=== PATIENT | female | born 1955 | race Caucasian/White ===

== ENCOUNTER → 2018-07-15 11:45 | Outpatient (CLI) | payer OTHER, SELFPAY ==
--- NOTE | 2018-07-15 11:47 | DI.RAD.S_ITS ---
PROCEDURE: XR SHOULDER RT MIN 2V INDICATIONS: Right shoulder pain post fal in May 2018l TECHNIQUE: 3 views of the shoulder were acquired. COMPARISON: None. FINDINGS: Bones: No fractures or dislocations. No suspicious bony lesions. There is mild to moderate degenerative joint disease involving the acromioclavicular an glenohumeral joint. Subchondral lucencies from her head are likely caused by subchondral cyst formation. Visualized ribs appear intact. Soft tissues: No suspicious soft tissue calcifications. IMPRESSION: Mild to moderate degenerative joint disease. Dictated by: Kaye Orlando M.D. on 07/15/2018 at 17:45 Approved by: Kaye Orlando M.D. on 07/15/2018 at 17:46
== END ==
PROVIDERS: PCP Registered Nurse; Visit Provider Registered Nurse
DX: M25.511 Pain in right shoulder (principal); M19.011 Primary osteoarthritis, right shoulder
CPT/HCPCS: 73030

== ENCOUNTER → 2018-07-19 09:08 | Outpatient (CLI) | payer OTHER, SELFPAY ==
--- NOTE | 2018-07-19 | DI.MG.S_ITS ---
BILATERAL DIGITAL SCREENING MAMMOGRAM 3D/2D WITH CAD: 07/19/2018 CLINICAL: Routine screening. Family history of breast cancer. Comparison is made to exams dated: 06/14/2017 mammogram, 04/25/2016 mammogram, and 12/14/2013 mammogram - [facility]. The tissue of both breasts is predominantly fatty. Current study was also evaluated with a Computer Aided Detection (CAD) system. No significant masses, calcifications, or other findings are seen in either breast. There has been no significant interval change. IMPRESSION: NEGATIVE There is no mammographic evidence of malignancy. A 1 year screening mammogram is recommended.(07/20/2019) This exam was interpreted at Station ID: [id number]. NOTE: For mammograms, a report in lay terms will be sent to the patient. Approximately 15% of breast malignancies will not be visualized mammographically. In the management of a palpable breast mass, a negative mammogram must not discourage biopsy of a clinically suspicious lesion. Electronically Signed By: Sandra hewitt/annelise:07/21/2018 11:18:36 letter sent: Normal Exam ACR BI-RADS Category 1: Negative 3341F
== END ==
PROVIDERS: Family Provider Physician Assistant; PCP Registered Nurse; Visit Provider Registered Nurse
DX: Z12.31 Encounter for screening mammogram for malignant neoplasm of breast (principal); Z80.3 Family history of malignant neoplasm of breast
CPT/HCPCS: 77063; 77067

== ENCOUNTER → 2018-07-25 07:31 | Outpatient (CLI) | payer OTHER, SELFPAY ==
[2018-07-25 08:10] LABS: Add Manual Diff / Slide Review NO; Basophils Percent Auto 0.4 % (0-2); Eosinophils Percent Auto 2.5 % (2-4); Hematocrit 41.8 % (36-46); Hemoglobin 13.9 g/dL (12.0-16.0); Lymphocytes Percent Auto 25.3 % (25-40); Mean Corpuscular HGB Conc 33.2 % (30-36); Mean Corpuscular Hemoglobin 29.7 PG (26-34); Mean Corpuscular Volume 89.5 fL (80-100); Monocytes Percent Auto 6.3 % (3-14); Neutrophils Absolute Auto 5600 /uL (3000-5900); Neutrophils Percent Auto 65.5 % (50-75); Platelet Count 273 X10^3/uL (150-400); Red Blood Cell Count 4.67 X10^6/uL (4.0-5.2); Red Cell Distribution Width 14.3 % (11.6-14.8); White Blood Cell Count 8.5 X10^3/uL (4.5-11.0)
[2018-07-25 08:18] LABS: Hemoglobin A1C% w Est Avg Glu 6.1 % (4.0-6.0)
[2018-07-25 08:34] LABS: Alanine Aminotransferase 26 IU/L (9-52); Albumin 4.1 g/dL (3.5-5.0); Albumin Globulin Ratio 1.4 (1.0-2.8); Alkaline Phosphatase 62 U/L (38-126); Aspartate Aminotransferase 18 IU/L (14-36); BUN Creatinine Ratio 23.8 (6-22); Bilirubin Total 0.5 mg/dL (0.2-1.3); Blood Urea Nitrogen 19 mg/dL (7-17); Calcium 9.4 mg/dL (8.4-10.2); Carbon Dioxide 29 mmol/L (22-32); Chloride 103 mmol/L (98-107); Cholesterol 210 mg/dL (140-199); Estimated Glomerular Filt Rate > 60.0 mL/min (>60); Glucose 133 mg/dL (80-110); HDL Cholesterol 45 mg/dL (40-60); HEMOLYSIS < 15 (0-50); LDL Cholesterol Calculated 129 mg/dL (<100); Potassium 4.5 mmol/L (3.4-5.1); Sodium 143 mmol/L (137-145); Total Protein 7.1 g/dL (6.3-8.2); Triglycerides 182 mg/dL (35-150)
[2018-07-25 08:45] LABS: Vitamin D 25 Hydroxy (D3) 36.2 ng/mL (30.0-100.0)
[2018-07-25 09:00] LABS: Thyroid Stimulating Hormone 2.11 uIU/mL (0.47-4.68)
== END ==
PROVIDERS: PCP Registered Nurse; Visit Provider Registered Nurse
DX: E66.01 Morbid (severe) obesity due to excess calories (principal); E10.9 Type 1 diabetes mellitus without complications; E78.5 Hyperlipidemia, unspecified; Z13.29 Encounter for screening for other suspected endocrine disorder
CPT/HCPCS: 36415; 80053; 80061; 82306; 83036; 84443; 85025

== ENCOUNTER → 2018-07-28 10:04 | Outpatient (CLI) | payer OTHER, SELFPAY ==
[2018-07-28 12:18] LABS: Creatinine Urine Random 52.8 mg/dL
[2018-07-28 12:21] LABS: Microalbumi Creatinin Ratio Ur 13.2 ug/mg CR (<30); Microalbumin Urine Random 0.7 mg/dL (0-1.6)
== END ==
PROVIDERS: PCP Registered Nurse; Visit Provider Registered Nurse
DX: E10.9 Type 1 diabetes mellitus without complications (principal); E78.5 Hyperlipidemia, unspecified; Z13.29 Encounter for screening for other suspected endocrine disorder
CPT/HCPCS: 82043; 82570

== ENCOUNTER → 2018-08-14 14:45 | Outpatient (CLI) | payer OTHER, SELFPAY ==
[2018-08-14 16:08] LABS: Blood Urea Nitrogen 16 mg/dL (7-17); Estimated Glomerular Filt Rate > 60.0 mL/min (>60)
== END ==
PROVIDERS: PCP Registered Nurse; Visit Provider Registered Nurse
DX: E11.9 Type 2 diabetes mellitus without complications (principal)
CPT/HCPCS: 36415; 82565; 84520

== ENCOUNTER → 2018-08-19 13:37 | Outpatient (CLI) | payer OTHER, SELFPAY ==
--- NOTE | 2018-08-19 13:39 | DI.RAD.S_ITS ---
PROCEDURE: FL SHOULDER INJECTION MR/CT RT INDICATIONS: Right shoulder pain TECHNIQUE: The indications, alternatives, benefits, risks, and complications of the procedure were explained to the patient. Written informed consent was obtained and placed in the chart. The shoulder was examined fluoroscopically and a site for needle placement chosen for entry into the glenohumeral joint from an anterior approach. The skin was prepped and draped in a sterile fashion, and 1% lidocaine infiltrated from skin down to joint capsule. A spinal needle was inserted into the glenohumeral joint, and a small amount of iodinated contrast media injected to confirm intra-articular placement of the needle tip. This was followed by approximately 12 mL dilute solution of a gadolinium containing MR contrast agent. The needle was removed and a dressing was applied. The patient was given postprocedural instructions and sent to the MR suite for MR imaging. FINDINGS: A single fluoroscopic spot image demonstrates intra-articular location of injected iodinated contrast. IMPRESSION: Successful fluoroscopically guided administration of dilute Gadolinium solution into the shoulder joint for MR arthrogram. Dictated by: Kaye Orlando M.D. on 08/19/2018 at 15:05 Approved by: Kaye Orlando M.D. on 08/19/2018 at 15:05
--- NOTE | 2018-08-19 13:39 | DI.MRI.S_ITS ---
PROCEDURE: MR SHOULDER RT W CON INDICATIONS: Right shoulder pain TECHNIQUE: After the administration of 12 mL of dilute intra-articular Gadolinium contrast, oblique coronal T1 and T2 spin echo with fat saturation, oblique sagittal T1 spin echo with and without fat saturation, oblique sagittal T2 fast spin echo with fat saturation, axial T1 spin echo with fat saturation through the shoulder. COMPARISON: None. FINDINGS: Image quality: Excellent. Rotator cuff: Massive full-thickness tear of the supraspinatus and infraspinatus tendons. There is also teres minor tendinopathy and partial thickness articular sided tear image 11 series 9. Subscapularis tendinopathy with full-thickness slitlike tear image 14 series 9. Severe atrophy of all of the rotator cuff muscles. Bones and bursae: No bone marrow contusions or fractures. Moderate acromioclavicular joint degeneration. The acromion demonstrates conventional anatomy, without an os acromiale. Capsule and soft tissues: The labrum is not well seen circumferentially suggestive of chronic ill-defined tear. Intra-articular segment of the long head biceps tendon not well seen suggestive of rupture. The rotator interval appears normal, without fibrosis. The coracohumeral ligament is not seen and likely torn. No definite intra-articular loose bodies. IMPRESSION: Massive full-thickness tear of the supraspinatus and infraspinatus tendons. Partial thickness articular sided tear of the teres minor. Full-thickness slitlike tear and interstitial tearing involving the subscapularis. Severe atrophy of all the rotator cuff muscles. Circumferential, ill-defined probably chronic labral tear. Long head biceps tendon not well seen and probably ruptured. Dictated by: Олег Zacarias M.D. on 08/19/2018 at 15:39 Approved by: Олег Zacarias M.D. on 08/19/2018 at 15:45
== END ==
PROVIDERS: PCP Registered Nurse; Visit Provider Registered Nurse
DX: M25.511 Pain in right shoulder (principal); M75.121 Complete rotator cuff tear or rupture of right shoulder, not specified as traumatic
CPT/HCPCS: 23350; 73222; 77002

== ENCOUNTER → 2018-10-08 11:30 | Outpatient (CLI) | payer OTHER, SELFPAY ==
[2018-10-08 12:25] LABS: Alanine Aminotransferase 24 IU/L (9-52); Aspartate Aminotransferase 40 IU/L (14-36)
== END ==
PROVIDERS: PCP Registered Nurse; Visit Provider Registered Nurse
DX: E78.2 Mixed hyperlipidemia (principal); Z79.899 Other long term (current) drug therapy
CPT/HCPCS: 36415; 84450; 84460

== ENCOUNTER → 2019-05-14 15:24 | Outpatient (CLI) | payer OTHER, SELFPAY ==
[2019-05-14 15:59] LABS: Hemoglobin A1C% w Est Avg Glu 6.3 % (4.0-6.0)
[2019-05-14 16:05] LABS: BUN Creatinine Ratio 31.4 (6-22); Blood Urea Nitrogen 22 mg/dL (7-17); Calcium 9.6 mg/dL (8.4-10.2); Carbon Dioxide 28 mmol/L (22-32); Chloride 102 mmol/L (98-107); Cholesterol 148 mg/dL (140-199); Estimated Glomerular Filt Rate > 60.0 mL/min (>60); Glucose 104 mg/dL (80-110); HDL Cholesterol 61 mg/dL (40-60); HEMOLYSIS 29 (0-50); LDL Cholesterol Calculated 56 mg/dL (<100); Potassium 4.7 mmol/L (3.4-5.1); Sodium 139 mmol/L (137-145); Triglycerides 154 mg/dL (35-150)
== END ==
PROVIDERS: PCP Registered Nurse; Visit Provider Registered Nurse
DX: E11.9 Type 2 diabetes mellitus without complications (principal)
CPT/HCPCS: 36415; 80048; 80061; 83036

== ENCOUNTER → 2019-09-11 13:58 | Outpatient (CLI) | payer OTHER, SELFPAY ==
--- NOTE | 2019-09-11 | DI.MG.S_ITS ---
BILATERAL DIGITAL SCREENING MAMMOGRAM 3D/2D WITH CAD: 09/11/2019 CLINICAL: Routine screening. Family history of breast cancer. Comparison is made to exams dated: 07/19/2018 mammogram, 06/14/2017 mammogram, and 04/25/2016 mammogram - [facility]. The tissue of both breasts is predominantly fatty. Current study was also evaluated with a Computer Aided Detection (CAD) system. There is a mole marker on the left breast. No significant masses, calcifications, or other findings are seen in either breast. There has been no significant interval change. IMPRESSION: NEGATIVE There is no mammographic evidence of malignancy. A 1 year screening mammogram is recommended. This exam was interpreted at Station ID: [id number]. NOTE: For mammograms, a report in lay terms will be sent to the patient. Approximately 15% of breast malignancies will not be visualized mammographically. In the management of a palpable breast mass, a negative mammogram must not discourage biopsy of a clinically suspicious lesion. Electronically Signed By: Wai begum/annelise:09/11/2019 16:09:28 letter sent: Normal Exam ACR BI-RADS Category 1: Negative 3341F
== END ==
PROVIDERS: PCP Registered Nurse; Visit Provider Registered Nurse
DX: Z12.31 Encounter for screening mammogram for malignant neoplasm of breast (principal); Z80.3 Family history of malignant neoplasm of breast
CPT/HCPCS: 77063; 77067

== ENCOUNTER → 2019-11-02 12:41 | Outpatient (CLI) | payer OTHER, SELFPAY ==
[2019-11-02 15:14] LABS: Hemoglobin A1C% w Est Avg Glu 6.6 % (4.0-6.0)
== END ==
PROVIDERS: PCP Registered Nurse; Visit Provider Registered Nurse
DX: E11.9 Type 2 diabetes mellitus without complications (principal)
CPT/HCPCS: 36415; 83036

== ENCOUNTER → 2020-01-05 09:05 | Outpatient (CLI) | payer OTHER, SELFPAY ==
--- NOTE | 2020-01-05 09:06 | DI.MRI.S_ITS ---
PROCEDURE: MR FEMUR RT WO/W CON INDICATIONS: Large soft tissue thigh mass 14 x 8 cm lateral aspect TECHNIQUE: Noncontrast coronal T1 spin echo and STIR, sagittal T1 spin echo with fat saturation and STIR, axial T1 spin echo and T2 fast spin echo with fat saturation. After the administration of contrast, axial/sagittal/coronal T1 spin echo with fat saturation through the right thigh. COMPARISON: None. FINDINGS: Image quality: Excellent. Bones: Subtle skin marker is placed over lateral aspect of mid right thigh. There is no marrow edema. No area of abnormal intraosseous enhancement. No cortical erosion or destruction. No periosteal reaction. Right hip joint osteoarthritic changes are seen. No evidence of avascular necrosis of femoral head. Soft tissues: No discrete soft tissue masses are visualized. Asymmetric prominence of right lateral thigh subcutaneous fat is seen, an encapsulated lipoma cannot be excluded. The scanned muscles demonstrate normal overall bulk and internal signal. Subcutaneous tissues appear normal as well. No abnormal soft tissue enhancement. IMPRESSION: 1. No discrete enhancing soft tissue mass is seen. Asymmetrically prominent right lateral mid thigh subcutaneous fat which may represent an encapsulated lipoma in this area. 2. No underlying muscle involvement. No intramuscular mass or fluid collection. No abnormal intramuscular enhancement. 3. No abnormal intraosseous enhancement is suspicious intraosseous lesion. No fracture or dislocation. Bony cortex is intact. Dictated by: Salvatore Madrid M.D. on 01/05/2020 at 12:28 Approved by: Salvatore Madrid M.D. on 01/05/2020 at 12:33
== END ==
PROVIDERS: PCP Registered Nurse; Referring Provider Registered Nurse; Visit Provider Specialist
DX: R22.41 Localized swelling, mass and lump, right lower limb (principal)
CPT/HCPCS: 73720

== ENCOUNTER → 2020-06-13 08:06 | Outpatient (CLI) | payer MEDICARE, BC, SELFPAY ==
[2020-06-13 08:46] LABS: Hemoglobin A1C% w Est Avg Glu 6.8 % (4.0-6.0)
[2020-06-13 08:57] LABS: BUN Creatinine Ratio 32.3 (6-22); Blood Urea Nitrogen 21 mg/dL (7-17); Carbon Dioxide 30 mmol/L (22-32); Chloride 102 mmol/L (98-107); Cholesterol 153 mg/dL (140-199); Estimated Glomerular Filt Rate > 60.0 mL/min (>60); Glucose 145 mg/dL (80-110); HDL Cholesterol 63 mg/dL (40-60); HEMOLYSIS < 15 (0-50); LDL Cholesterol Calculated 56 mg/dL (<100); Potassium 4.5 mmol/L (3.4-5.1); Sodium 138 mmol/L (137-145); Triglycerides 172 mg/dL (35-150)
== END ==
PROVIDERS: PCP Nurse Practitioner Family; Referring Provider Nurse Practitioner Family; Visit Provider Registered Nurse
DX: E11.9 Type 2 diabetes mellitus without complications (principal); E66.9 Obesity, unspecified; E78.5 Hyperlipidemia, unspecified
CPT/HCPCS: 36415; 80048; 80061; 83036

== ENCOUNTER → 2020-09-17 11:09 | Outpatient (CLI) | payer MEDICARE, OTHER, SELFPAY ==
--- NOTE | 2020-09-17 | DI.MG.S_ITS ---
BILATERAL DIGITAL SCREENING MAMMOGRAM 3D/2D WITH CAD: 09/17/2020 CLINICAL: Routine screening. Family history of breast cancer. Comparison is made to exams dated: 09/11/2019 mammogram, 07/19/2018 mammogram, and 06/14/2017 mammogram - [facility]. The tissue of both breasts is predominantly fatty. Current study was also evaluated with a Computer Aided Detection (CAD) system. There is a mole marker on the left breast. No significant masses, calcifications, or other findings are seen in either breast. There has been no significant interval change. IMPRESSION: NEGATIVE There is no mammographic evidence of malignancy. A 1 year screening mammogram is recommended. This exam was interpreted at Station ID: [id number]. NOTE: For mammograms, a report in lay terms will be sent to the patient. Approximately 15% of breast malignancies will not be visualized mammographically. In the management of a palpable breast mass, a negative mammogram must not discourage biopsy of a clinically suspicious lesion. Electronically Signed By: Sandra hewitt/annelise:09/20/2020 16:32:07 letter sent: Normal Exam ACR BI-RADS Category 1: Negative 3341F
== END ==
PROVIDERS: PCP Nurse Practitioner Family; Referring Provider Nurse Practitioner Family; Visit Provider Nurse Practitioner Family
DX: Z12.31 Encounter for screening mammogram for malignant neoplasm of breast (principal); Z80.3 Family history of malignant neoplasm of breast
CPT/HCPCS: 77063; 77067

== ENCOUNTER → 2020-11-04 06:50 | Outpatient (CLI) | payer MEDICARE, OTHER, SELFPAY ==
[2020-11-04 08:26] LABS: Hematocrit 39.9 % (36-46); Mean Corpuscular HGB Conc 32.6 % (30-36); Mean Corpuscular Hemoglobin 28.3 PG (26-34); Mean Corpuscular Volume 86.9 fL (80-100); Platelet Count 247 X10^3/uL (150-400); Red Cell Distribution Width 14.9 % (11.6-14.8); White Blood Cell Count 7.1 X10^3/uL (4.5-11.0)
[2020-11-04 09:02] LABS: Creatinine Urine Random 262.6 mg/dL
[2020-11-04 09:04] LABS: Microalbumi Creatinin Ratio Ur 26.6 ug/mg CR (<30)
[2020-11-04 09:28] LABS: Alanine Aminotransferase 18 IU/L (<35); Albumin Globulin Ratio 1.3 (1.0-2.8); Alkaline Phosphatase 89 U/L (38-126); Aspartate Aminotransferase 20 IU/L (14-36); BUN Creatinine Ratio 28.1 (6-22); Bilirubin Total 0.7 mg/dL (0.2-1.3); Blood Urea Nitrogen 16 mg/dL (7-17); Carbon Dioxide 29 mmol/L (22-32); Chloride 103 mmol/L (98-107); Cholesterol 145 mg/dL (140-199); Estimated Glomerular Filt Rate > 60.0 mL/min (>60); Glucose 169 mg/dL (80-110); HDL Cholesterol 54 mg/dL (40-60); HEMOLYSIS < 15 (0-50); LDL Cholesterol Calculated 62 mg/dL (<100); Potassium 4.1 mmol/L (3.4-5.1); Sodium 137 mmol/L (137-145); TSH w/ Reflex to FT4 1.24 uIU/mL (0.47-4.68); Triglycerides 145 mg/dL (35-150)
[2020-11-04 14:30] LABS: Hemoglobin A1C% w Est Avg Glu 7.7 % (4.0-6.0)
== END ==
PROVIDERS: PCP Nurse Practitioner Family; Referring Provider Nurse Practitioner Family; Visit Provider Nurse Practitioner Family
DX: Z00.00 Encounter for general adult medical examination without abnormal findings (principal); E11.9 Type 2 diabetes mellitus without complications; E78.2 Mixed hyperlipidemia; F41.9 Anxiety disorder, unspecified
CPT/HCPCS: 36415; 80053; 80061; 82043; 82570; 83036; 84443; 85027

== ENCOUNTER → 2021-02-02 07:28 | Outpatient (CLI) | payer MEDICARE, OTHER, SELFPAY ==
[2021-02-02 08:33] LABS: Hemoglobin A1C% w Est Avg Glu 6.9 % (4.0-6.0)
[2021-02-02 08:48] LABS: Alanine Aminotransferase 19 IU/L (<35); Albumin Globulin Ratio 1.3 (1.0-2.8); Alkaline Phosphatase 83 U/L (38-126); Aspartate Aminotransferase 24 IU/L (14-36); BUN Creatinine Ratio 32.8 (6-22); Bilirubin Total 0.3 mg/dL (0.2-1.3); Blood Urea Nitrogen 19 mg/dL (7-17); Calcium 9.3 mg/dL (8.4-10.2); Carbon Dioxide 29 mmol/L (22-32); Chloride 104 mmol/L (98-107); Cholesterol 137 mg/dL (140-199); Estimated Glomerular Filt Rate > 60.0 mL/min (>60); Globulin 3.1 g/dL (1.7-4.1); Glucose 123 mg/dL (80-110); HDL Cholesterol 59 mg/dL (40-60); HEMOLYSIS < 15 (0-50); LDL Cholesterol Calculated 57 mg/dL (<100); Sodium 139 mmol/L (137-145); Total Protein 7.1 g/dL (6.3-8.2); Triglycerides 105 mg/dL (35-150)
[2021-02-02 13:27] LABS: Potassium 4.5 mmol/L (3.4-5.1)
== END ==
PROVIDERS: PCP Nurse Practitioner; Referring Provider Nurse Practitioner; Visit Provider Nurse Practitioner
DX: E11.9 Type 2 diabetes mellitus without complications (principal); E78.2 Mixed hyperlipidemia; Z79.899 Other long term (current) drug therapy
CPT/HCPCS: 36415; 80053; 80061; 83036

== ENCOUNTER → 2021-07-20 08:04 | Outpatient (CLI) | payer MEDICARE, OTHER, SELFPAY ==
[2021-07-20 09:50] LABS: Hemoglobin A1C% w Est Avg Glu 7.3 % (4.0-6.0)
[2021-07-20 10:32] LABS: Alanine Aminotransferase 15 IU/L (<35); Albumin Globulin Ratio 1.4 (1.0-2.8); Alkaline Phosphatase 88 U/L (38-126); Aspartate Aminotransferase 18 IU/L (14-36); BUN Creatinine Ratio 32.1 (6-22); Bilirubin Total 0.5 mg/dL (0.2-1.3); Blood Urea Nitrogen 18 mg/dL (7-17); Calcium 9.3 mg/dL (8.4-10.2); Carbon Dioxide 31 mmol/L (22-32); Chloride 102 mmol/L (98-107); Cholesterol 144 mg/dL (140-199); Estimated Glomerular Filt Rate > 60.0 mL/min (>60); Globulin 2.8 g/dL (1.7-4.1); Glucose 157 mg/dL (80-110); HDL Cholesterol 64 mg/dL (40-60); HEMOLYSIS < 15 (0-50); LDL Cholesterol Calculated 53 mg/dL (<100); Potassium 4.4 mmol/L (3.4-5.1); Sodium 139 mmol/L (137-145); Total Protein 6.8 g/dL (6.3-8.2); Triglycerides 137 mg/dL (35-150)
[2021-07-20 10:58] LABS: Thyroid Stimulating Hormone 1.47 uIU/mL (0.47-4.68)
[2021-07-20 11:40] LABS: Creatinine Urine Random 103.8 mg/dL
[2021-07-20 11:51] LABS: Microalbumi Creatinin Ratio Ur 8.6 ug/mg CR (<30); Microalbumin Urine Random 0.9 mg/dL (0-1.6)
== END ==
PROVIDERS: PCP Nurse Practitioner; Referring Provider Nurse Practitioner; Visit Provider Nurse Practitioner
DX: E11.9 Type 2 diabetes mellitus without complications (principal); E78.2 Mixed hyperlipidemia; F41.9 Anxiety disorder, unspecified; G47.00 Insomnia, unspecified; Z79.899 Other long term (current) drug therapy
CPT/HCPCS: 36415; 80053; 80061; 82043; 82570; 83036; 84439; 84443; 84481

== ENCOUNTER → 2021-09-30 10:18 | Outpatient (CLI) | payer MEDICARE, OTHER, SELFPAY ==
--- NOTE | 2021-09-30 10:19 | DI.MG.S_ITS ---
BILATERAL DIGITAL SCREENING MAMMOGRAM 3D/2D WITH CAD: 09/30/2021 CLINICAL: Routine screening. Family history of breast cancer. Comparison is made to exams dated: 09/17/2020 mammogram, 09/11/2019 mammogram, 07/19/2018 mammogram, and 06/14/2017 mammogram - [facility]. The tissue of both breasts is predominantly fatty. Current study was also evaluated with a Computer Aided Detection (CAD) system. There is a mole marker on the left breast. No significant masses, calcifications, or other findings are seen in either breast. There has been no significant interval change. IMPRESSION: NEGATIVE There is no mammographic evidence of malignancy. A 1 year screening mammogram is recommended. This exam was interpreted at Station ID: [id number]. NOTE: For mammograms, a report in lay terms will be sent to the patient. Approximately 15% of breast malignancies will not be visualized mammographically. In the management of a palpable breast mass, a negative mammogram must not discourage biopsy of a clinically suspicious lesion. Electronically Signed By: Lance lawler/annelise:10/02/2021 07:40:18 letter sent: Normal Exam ACR BI-RADS Category 1: Negative 3341F
== END ==
PROVIDERS: PCP Nurse Practitioner; Referring Provider Nurse Practitioner; Visit Provider Nurse Practitioner
DX: Z12.31 Encounter for screening mammogram for malignant neoplasm of breast (principal); Z80.3 Family history of malignant neoplasm of breast
CPT/HCPCS: 77063; 77067

== ENCOUNTER → 2021-11-10 07:36 | Outpatient (CLI) | payer MEDICARE, OTHER, SELFPAY ==
[2021-11-10 08:38] LABS: Hemoglobin A1C% w Est Avg Glu 7.7 % (4.0-6.0)
[2021-11-10 08:48] LABS: Alanine Aminotransferase 17 IU/L (<35); Albumin 3.9 g/dL (3.5-5.0); Albumin Globulin Ratio 1.4 (1.0-2.8); Alkaline Phosphatase 89 U/L (38-126); Aspartate Aminotransferase 22 IU/L (14-36); BUN Creatinine Ratio 19.4 (6-22); Bilirubin Total 0.5 mg/dL (0.2-1.3); Blood Urea Nitrogen 12 mg/dL (7-17); Calcium 9.3 mg/dL (8.4-10.2); Carbon Dioxide 28 mmol/L (22-32); Chloride 106 mmol/L (98-107); Cholesterol 137 mg/dL (140-199); Estimated Glomerular Filt Rate > 60.0 mL/min (>60); Globulin 2.8 g/dL (1.7-4.1); Glucose 149 mg/dL (80-110); HDL Cholesterol 62 mg/dL (40-60); HEMOLYSIS < 15 (0-50); LDL Cholesterol Calculated 50 mg/dL (<100); Potassium 4.6 mmol/L (3.4-5.1); Sodium 141 mmol/L (137-145); Total Protein 6.7 g/dL (6.3-8.2); Triglycerides 126 mg/dL (35-150)
[2021-11-10 09:01] LABS: Free T3, Triiodothyronine Free 3.04 pg/mL (2.77-5.27); Free T4, Direct Thyroxine 0.95 ng/dL (0.78-2.19)
[2021-11-10 09:14] LABS: Thyroid Stimulating Hormone 1.82 uIU/mL (0.47-4.68)
== END ==
PROVIDERS: PCP Nurse Practitioner; Referring Provider Nurse Practitioner; Visit Provider Nurse Practitioner
DX: E11.9 Type 2 diabetes mellitus without complications (principal); E78.2 Mixed hyperlipidemia; F41.9 Anxiety disorder, unspecified; G47.00 Insomnia, unspecified; R80.9 Proteinuria, unspecified; Z79.899 Other long term (current) drug therapy
CPT/HCPCS: 36415; 80053; 80061; 83036; 84439; 84443; 84481

== ENCOUNTER → 2022-03-27 07:51 | Outpatient (CLI) | payer MEDICARE, OTHER, SELFPAY ==
[2022-03-27 09:32] LABS: Hemoglobin A1C% w Est Avg Glu 7.7 % (4.0-6.0)
[2022-03-27 09:41] LABS: Alanine Aminotransferase 13 IU/L (<35); Albumin 3.7 g/dL (3.5-5.0); Albumin Globulin Ratio 1.3 (1.0-2.8); Alkaline Phosphatase 87 U/L (38-126); Aspartate Aminotransferase 19 IU/L (14-36); BUN Creatinine Ratio 23.5 (6-22); Bilirubin Total 0.6 mg/dL (0.2-1.3); Blood Urea Nitrogen 16 mg/dL (7-17); Calcium 8.8 mg/dL (8.4-10.2); Carbon Dioxide 29 mmol/L (22-32); Chloride 105 mmol/L (98-107); Estimated Glomerular Filt Rate > 60 mL/min (>60); Globulin 2.8 g/dL (1.7-4.1); Glucose 126 mg/dL (80-110); HEMOLYSIS < 15 (0-50); Potassium 4.4 mmol/L (3.4-5.1); Sodium 140 mmol/L (137-145); Total Protein 6.5 g/dL (6.3-8.2)
== END ==
PROVIDERS: PCP Nurse Practitioner; Referring Provider Nurse Practitioner; Visit Provider Nurse Practitioner
DX: E11.9 Type 2 diabetes mellitus without complications (principal)
CPT/HCPCS: 36415; 80053; 83036

== ENCOUNTER → 2022-04-25 12:22 | Outpatient (CLI) | payer MEDICARE, OTHER, SELFPAY | PROVIDERS: PCP Nurse Practitioner; Referring Provider Nurse Practitioner; Visit Provider Nurse Practitioner | DX: Z13.820 Encounter for screening for osteoporosis; Z78.0 Asymptomatic menopausal state; M85.852 Other specified disorders of bone density and structure, left thigh | CPT/HCPCS: 77080 ==

== ENCOUNTER → 2022-06-06 10:49 | Outpatient (CLI) | payer MEDICARE, OTHER, SELFPAY ==
--- NOTE | 2022-06-19 16:04 | DIAB.MNT ---
Initial Diabetes Medical Nutrition Therapy Assessment Name: Alexandra Burrell Date: 06/06/22 Time: [id number] Dx: Type II Diabetes Provider: Sharon Meléndez Alexandra presents for initial visit regarding T2DM. States she was doing relatively well with DM and weight pre-pandemic (lost 70#). At that time she was taking phentermine for wt loss and eating only when hungry. Since that time she has gained. Endorses at least 40# over 3 years. Reports lactose intolerance and does not eat fish or turkey (vomiting and diarrhea). No shellfish, though she is unsure why this is. Difficulty finding protein options. Originally though Metformin was causing the diarrhea, but turns out not to be the case. Dairy was the culprit. May benefit from Metformin trial again if provider agrees. This may reduce glargine needs. States she would like to know how much pro and carbs to eat. has h/o tracking food intake on delfin. May try goat cheese. Diet Recall: 11a: eggs and PB toast x 2 2-3p: 3-4oz chicken salad +/- 1.5c brown or wild rice 5-8p: 1.5c rice with chicken or burger and veggies sn: nothing or small apple Anthropometrics: Ht: 56 Wt: 325# reported Physical Activity: water aerobics 3x per week before, none now. Joined a gym but has not been back. Currently gardens and does PT weekly + home PT exercises daily. Self-Monitoring Blood Glucose: uses freestyle ebony. Time in range for 7 days 70-180 92% with 8% above target 181-240 mg/dL. In review of CGM, some elevated FBG and post meal readings. Reports 2 recent lows in the evening that were not symptomatic. May be a false low. Date Pre Post Pre Post Pre Post HS 05/31 122 812 189 8/13 14 15 139 190 16 135 210 06/06 122 Diabetes Medications: 17u glargine hs Pertinent Labs: hgA1c 7.7% Past Medical History: (Last Updated 05/15/22 @ 06:05 by GAGE Ochoa) Anxiety Asthma 20's Class 3 severe obesity due to excess calories in adult Depression (~1989) Diabetes Environmental allergies Hyperlipidemia associated with type 2 diabetes mellitus Obesity Osteopenia after menopause Right shoulder injury Multiple injuries leading to severe right shoulder pain in 06/07. Initially treated with PT and NSAIDs with no improvement in symptoms. MRI performed on 08/19/18 and showed multiple full thickness and partial thickness tears of her rotator cuff and a chronic tear of her labrum and probable rupture of the proximal biceps tendon. Patient saw ortho but was eventually discharged given lack of dysfunction. Seasonal allergies Childhood Sleep apnea (~2007) Type 2 diabetes mellitus with insulin therapy Nutrition Rx: 1500-1700kcals Carbohydrates: Daily:150g Meal:30 Snack:15-30g Protein 95-130g Nutrition Diagnosis: - Nutrition knowledge deficit r/t needing more pro ideas and unsure of macro recs aeb pt report - Excessive CHO intake r/t nutrition knowledge deficit aeb >1c rice at meals and elevated pc bg - Physical inactivity r/t pandemic impacting changes to her gym schedule aeb pt report Intervention: This participant was very receptive. Provided appropriate educational handouts. Discussed the following topics: Completed intake assessment. Discussed barriers to care. Protein ideas and recipes Nutrition rx and percentages for macros in delfin Tracking food intake benefits Plate Method, impact of macronutrients on blood sugar, meal timing, carbohydrate counting, pairing macronutrients and spreading out carbohydrates for better blood glucose management Recommended servings for carbohydrates at meals and snacks BG goals FBG 80-130 and 1-2hr pc <180 mg/dL Potential benefit to trying Metformin again Role of physical activity and following provider guidelines for safety Created SMART goals for patient self-care and success. Goals: Track food intake Try new protein idea Check FBg and/or 1-2 hr pc Follow-up: ROSALIE YIP follow-up in 3-4 weeks Catherine Quinn RDN, [place] Certified Diabetes Care and Braille Proofreader P: [phone] Thank you for this referral
== END ==
PROVIDERS: PCP Nurse Practitioner; Referring Provider Nurse Practitioner; Visit Provider Nurse Practitioner
DX: E11.9 Type 2 diabetes mellitus without complications (principal); Z71.3 Dietary counseling and surveillance
CPT/HCPCS: 97802

== ENCOUNTER → 2022-06-28 10:37 | Outpatient (CLI) | payer MEDICARE, OTHER, SELFPAY ==
[2022-06-28 13:04] LABS: Alanine Aminotransferase 13 IU/L (<35); Albumin 4.1 g/dL (3.5-5.0); Albumin Globulin Ratio 1.3 (1.0-2.8); Alkaline Phosphatase 85 U/L (38-126); Aspartate Aminotransferase 19 IU/L (14-36); BUN Creatinine Ratio 21.6 (6-22); Bilirubin Total 0.6 mg/dL (0.2-1.3); Blood Urea Nitrogen 16 mg/dL (7-17); Calcium 9.1 mg/dL (8.4-10.2); Carbon Dioxide 27 mmol/L (22-32); Chloride 102 mmol/L (98-107); Cholesterol 140 mg/dL (140-199); Estimated Glomerular Filt Rate > 60 mL/min (>60); Globulin 3.2 g/dL (1.7-4.1); Glucose 120 mg/dL (80-110); HDL Cholesterol 59 mg/dL (40-60); HEMOLYSIS < 15 (0-50); LDL Cholesterol Calculated 56 mg/dL (<100); Potassium 4.7 mmol/L (3.4-5.1); Sodium 140 mmol/L (137-145); Total Protein 7.3 g/dL (6.3-8.2); Triglycerides 124 mg/dL (35-150)
[2022-06-28 13:12] LABS: Free T3, Triiodothyronine Free 3.19 pg/mL (2.77-5.27); Free T4, Direct Thyroxine 1.04 ng/dL (0.78-2.19)
[2022-06-28 13:25] LABS: Thyroid Stimulating Hormone 1.73 uIU/mL (0.47-4.68)
[2022-06-28 15:51] LABS: Hemoglobin A1C% w Est Avg Glu 6.5 % (4.0-6.0)
== END ==
PROVIDERS: PCP Nurse Practitioner; Referring Provider Nurse Practitioner; Visit Provider Nurse Practitioner
DX: E11.9 Type 2 diabetes mellitus without complications (principal); E66.01 Morbid (severe) obesity due to excess calories; E78.2 Mixed hyperlipidemia; F32.A Depression, unspecified; Z68.42 Body mass index [BMI] 45.0-49.9, adult; Z79.4 Long term (current) use of insulin; Z79.899 Other long term (current) drug therapy
CPT/HCPCS: 36415; 80053; 80061; 83036; 84439; 84443; 84481

== ENCOUNTER → 2022-10-27 08:11 | Outpatient (CLI) | payer MEDICARE, OTHER, SELFPAY ==
--- NOTE | 2022-10-27 08:14 | DI.MG.S_ITS ---
BILATERAL DIGITAL SCREENING MAMMOGRAM 3D/2D WITH CAD: 10/27/2022 CLINICAL: Routine screening. Family history of breast cancer. Comparison is made to exams dated: 09/30/2021 mammogram, 09/17/2020 mammogram, and 09/11/2019 mammogram - [facility]. Both breasts are almost entirely fatty (category a/<25% glandular tissue). Current study was also evaluated with a Computer Aided Detection (CAD) system. There is a mole marker on the left breast. No significant masses, calcifications, or other findings are seen in either breast. There has been no significant interval change. IMPRESSION: NEGATIVE There is no mammographic evidence of malignancy. A 1 year screening mammogram is recommended. Based on the Tyrer Cuzick model (a risk assessment model) the patient's lifetime risk is 11.8% and her 10 year risk is 6.2%. According to the ACR, ACS, and NCCN guidelines, an annual breast MRI exam along with mammogram is recommended if the patient's lifetime risk is 20% or greater. This exam was interpreted at Station ID: [id number]. NOTE: For mammograms, a report in lay terms will be sent to the patient. Approximately 15% of breast malignancies will not be visualized mammographically. In the management of a palpable breast mass, a negative mammogram must not discourage biopsy of a clinically suspicious lesion. Electronically Signed By: Lance lawler/annelise:10/29/2022 13:52:37 letter sent: Normal Exam ACR BI-RADS Category 1: Negative 3341F
== END ==
PROVIDERS: PCP Nurse Practitioner; Referring Provider Nurse Practitioner; Visit Provider Nurse Practitioner
DX: Z12.31 Encounter for screening mammogram for malignant neoplasm of breast (principal); Z80.3 Family history of malignant neoplasm of breast
CPT/HCPCS: 77063; 77067

== ENCOUNTER → 2022-10-27 08:12 | Outpatient (CLI) | payer MEDICARE, OTHER, SELFPAY ==
[2022-10-27 09:24] LABS: Alanine Aminotransferase 16 IU/L (<35); Albumin 4.1 g/dL (3.5-5.0); Albumin Globulin Ratio 1.3 (1.0-2.8); Alkaline Phosphatase 86 U/L (38-126); Aspartate Aminotransferase 20 IU/L (14-36); BUN Creatinine Ratio 20.6 (6-22); Bilirubin Total 0.4 mg/dL (0.2-1.3); Blood Urea Nitrogen 13 mg/dL (7-17); Calcium 9.2 mg/dL (8.4-10.2); Carbon Dioxide 29 mmol/L (22-32); Chloride 104 mmol/L (98-107); Cholesterol 161 mg/dL (140-199); Estimated Glomerular Filt Rate > 60 mL/min (>60); Globulin 3.1 g/dL (1.7-4.1); Glucose 115 mg/dL (80-110); HDL Cholesterol 62 mg/dL (40-60); HEMOLYSIS < 15 (0-50); LDL Cholesterol Calculated 76 mg/dL (<100); Potassium 4.9 mmol/L (3.4-5.1); Sodium 141 mmol/L (137-145); Total Protein 7.2 g/dL (6.3-8.2); Triglycerides 114 mg/dL (35-150)
[2022-10-27 09:25] LABS: Hemoglobin A1C% w Est Avg Glu 6.8 % (4.0-6.0)
[2022-10-27 09:38] LABS: Free T4, Direct Thyroxine 1.01 ng/dL (0.78-2.19)
[2022-10-27 09:51] LABS: Thyroid Stimulating Hormone 2.05 uIU/mL (0.47-4.68)
[2022-10-29 15:55] LABS: Hep C Virus Ab w/Reflex Quant NEGATIVE s/c (NEGATIVE)
== END ==
PROVIDERS: PCP Nurse Practitioner; Referring Provider Nurse Practitioner; Visit Provider Nurse Practitioner
DX: E11.69 Type 2 diabetes mellitus with other specified complication (principal); Z11.59 Encounter for screening for other viral diseases; E78.2 Mixed hyperlipidemia; E78.5 Hyperlipidemia, unspecified; F41.9 Anxiety disorder, unspecified; G47.00 Insomnia, unspecified; Z79.4 Long term (current) use of insulin; Z79.899 Other long term (current) drug therapy
CPT/HCPCS: 36415; 80053; 80061; 83036; 84439; 84443; 84481; 86803

== ENCOUNTER → 2023-02-08 08:32 | Outpatient (CLI) | payer MEDICARE, OTHER, SELFPAY ==
[2023-02-08 09:30] LABS: Alanine Aminotransferase 17 IU/L (<35); Albumin 3.8 g/dL (3.5-5.0); Albumin Globulin Ratio 1.2 (1.0-2.8); Alkaline Phosphatase 74 U/L (38-126); Aspartate Aminotransferase 22 IU/L (14-36); BUN Creatinine Ratio 22.6 (6-22); Bilirubin Total 0.4 mg/dL (0.2-1.3); Blood Urea Nitrogen 14 mg/dL (7-17); Calcium 8.6 mg/dL (8.4-10.2); Carbon Dioxide 28 mmol/L (22-32); Chloride 104 mmol/L (98-107); Estimated Glomerular Filt Rate > 60 mL/min (>60); Globulin 3.2 g/dL (1.7-4.1); Glucose 104 mg/dL (80-110); HEMOLYSIS < 15 (0-50); Potassium 4.2 mmol/L (3.4-5.1); Sodium 138 mmol/L (137-145)
[2023-02-08 09:32] LABS: Creatinine Urine Random 122.5 mg/dL
[2023-02-08 09:37] LABS: Microalbumi Creatinin Ratio Ur 8.9 ug/mg CR (<30); Microalbumin Urine Random 1.1 mg/dL (0-1.6)
[2023-02-09 08:41] LABS: Labcorp Hemoglobin (Hb) A1c 6.9 % (4.8-5.6)
== END ==
PROVIDERS: PCP Nurse Practitioner; Referring Provider Nurse Practitioner; Visit Provider Nurse Practitioner
DX: E11.9 Type 2 diabetes mellitus without complications (principal); Z79.899 Other long term (current) drug therapy; Z79.4 Long term (current) use of insulin
CPT/HCPCS: 36415; 80053; 82043; 82570; 83036

== ENCOUNTER → 2023-05-04 08:15 | Outpatient (CLI) | payer MEDICARE, OTHER, SELFPAY ==
[2023-05-04 08:56] LABS: HEMOLYSIS < 15 (0-50); Iron 60 ug/dL (37-170)
[2023-05-04 08:58] LABS: Alanine Aminotransferase 16 IU/L (<35); Albumin Globulin Ratio 1.4 (1.0-2.8); Alkaline Phosphatase 84 U/L (38-126); Aspartate Aminotransferase 20 IU/L (14-36); Bilirubin Total 0.5 mg/dL (0.2-1.3); Blood Urea Nitrogen 18 mg/dL (7-17); Calcium 9.2 mg/dL (8.4-10.2); Carbon Dioxide 26 mmol/L (22-32); Chloride 102 mmol/L (98-107); Cholesterol 160 mg/dL (140-199); Estimated Glomerular Filt Rate > 60 mL/min (>60); Globulin 2.9 g/dL (1.7-4.1); Glucose 162 mg/dL (80-110); HDL Cholesterol 62 mg/dL (40-60); HEMOLYSIS < 15 (0-50); LDL Cholesterol Calculated 65 mg/dL (<100); Potassium 4.6 mmol/L (3.4-5.1); Sodium 136 mmol/L (137-145); Total Protein 6.9 g/dL (6.3-8.2); Triglycerides 164 mg/dL (35-150)
[2023-05-04 09:02] LABS: C-Reactive Protein Quant 0.6 mg/dL (<1.0)
[2023-05-04 09:07] LABS: Percent Iron Saturation 15 % (15-50); Total Iron Binding Capacity 409 ug/dL (265-497); Transferrin 294 mg/dL (206-381)
[2023-05-04 09:14] LABS: Free T3, Triiodothyronine Free 3.27 pg/mL (2.77-5.27); Free T4, Direct Thyroxine 1.03 ng/dL (0.78-2.19)
[2023-05-04 09:31] LABS: Ferritin 10 ng/mL (11-264)
[2023-05-05 09:36] LABS: x Labcorp Estim. Avg Glu (eAG) 148 mg/dL (.); x Labcorp Hemoglobin A1c 6.8 % (4.8-5.6)
== END ==
PROVIDERS: PCP Nurse Practitioner; Referring Provider Internal Medicine Sleep Medicine; Visit Provider Internal Medicine Sleep Medicine
DX: E11.9 Type 2 diabetes mellitus without complications; E83.10 Disorder of iron metabolism, unspecified; G47.33 Obstructive sleep apnea (adult) (pediatric); G25.81 Restless legs syndrome; E11.69 Type 2 diabetes mellitus with other specified complication; E78.5 Hyperlipidemia, unspecified; F32.9 Major depressive disorder, single episode, unspecified; G25.0 Essential tremor; M85.80 Other specified disorders of bone density and structure, unspecified site; Z78.0 Asymptomatic menopausal state; Z79.4 Long term (current) use of insulin
CPT/HCPCS: 36415; 80053; 80061; 82728; 83036; 83540; 83550; 84439; 84443; 84481; 86140

== ENCOUNTER → 2023-08-12 08:49 | Outpatient (CLI) | payer MEDICARE, OTHER, SELFPAY ==
[2023-08-12 10:12] LABS: Add Manual Diff / Slide Review NO; Basophils Absolute Auto 0 /uL (0-100); Basophils Percent Auto 0.6 % (0-2); Eosinophils Absolute Auto 200 /uL (0-450); Eosinophils Percent Auto 3.2 % (2-4); Hematocrit 40.3 % (36-46); Hemoglobin 13.2 g/dL (12.0-16.0); Lymphocytes Absolute Auto 1700 /uL (1100-4500); Mean Corpuscular HGB Conc 32.7 % (30-36); Mean Corpuscular Hemoglobin 28.7 PG (26-34); Mean Corpuscular Volume 87.8 fL (80-100); Monocytes Absolute Auto 400 /uL (0-900); Monocytes Percent Auto 5.6 % (3-14); Neutrophils Absolute Auto 4500 /uL (1500-7000); Neutrophils Percent Auto 65.6 % (50-75); Platelet Count 281 X10^3/uL (150-400); Red Cell Distribution Width 15.4 % (11.6-14.8); White Blood Cell Count 6.8 X10^3/uL (4.5-11.0)
[2023-08-12 10:28] LABS: Hemoglobin A1C% w Est Avg Glu 6.9 % (4.0-6.0)
[2023-08-12 10:38] LABS: Alanine Aminotransferase 18 IU/L (<35); Albumin 3.9 g/dL (3.5-5.0); Albumin Globulin Ratio 1.3 (1.0-2.8); Alkaline Phosphatase 87 U/L (38-126); Aspartate Aminotransferase 21 IU/L (14-36); Bilirubin Total 0.5 mg/dL (0.2-1.3); Blood Urea Nitrogen 14 mg/dL (7-17); Calcium 9.7 mg/dL (8.4-10.2); Carbon Dioxide 27 mmol/L (22-32); Chloride 101 mmol/L (98-107); Cholesterol 220 mg/dL (140-199); Estimated Glomerular Filt Rate > 60 mL/min (>60); Globulin 2.9 g/dL (1.7-4.1); Glucose 114 mg/dL (80-110); HDL Cholesterol 62 mg/dL (40-60); HEMOLYSIS 30 (0-50); HEMOLYSIS < 15 (0-50); Iron 83 ug/dL (37-170); LDL Cholesterol Calculated 138 mg/dL (<100); Potassium 4.5 mmol/L (3.4-5.1); Sodium 137 mmol/L (137-145); Total Protein 6.8 g/dL (6.3-8.2); Triglycerides 102 mg/dL (35-150)
[2023-08-12 10:49] LABS: Percent Iron Saturation 24 % (15-50); Total Iron Binding Capacity 353 ug/dL (265-497); Transferrin 299 mg/dL (206-381)
[2023-08-12 10:53] LABS: Free T4, Direct Thyroxine 1.16 ng/dL (0.78-2.19)
[2023-08-12 11:21] LABS: Vitamin B12 243 pg/mL (239-931)
[2023-08-12 14:52] LABS: Creatinine Urine Random 108.6 mg/dL
[2023-08-12 14:53] LABS: Microalbumi Creatinin Ratio Ur 13.8 ug/mg CR (<30); Microalbumin Urine Random 1.5 mg/dL (0-1.6)
== END ==
PROVIDERS: PCP Nurse Practitioner; Referring Provider Nurse Practitioner; Visit Provider Nurse Practitioner
DX: E11.69 Type 2 diabetes mellitus with other specified complication (principal); E78.5 Hyperlipidemia, unspecified; E11.9 Type 2 diabetes mellitus without complications; Z79.4 Long term (current) use of insulin; F32.9 Major depressive disorder, single episode, unspecified; Z79.899 Other long term (current) drug therapy; E61.1 Iron deficiency
CPT/HCPCS: 36415; 80053; 80061; 82043; 82570; 82607; 83036; 83540; 83550; 84439; 84443; 84481; 85025

== ENCOUNTER → 2023-11-11 08:20 | Outpatient (CLI) | payer MEDICARE, OTHER, SELFPAY ==
[2023-11-11 09:36] LABS: Alanine Aminotransferase 15 IU/L (<35); Albumin 3.9 g/dL (3.5-5.0); Albumin Globulin Ratio 1.3 (1.0-2.8); Alkaline Phosphatase 68 U/L (38-126); Aspartate Aminotransferase 20 IU/L (14-36); BUN Creatinine Ratio 26.2 (6-22); Bilirubin Total 0.5 mg/dL (0.2-1.3); Blood Urea Nitrogen 16 mg/dL (7-17); Calcium 9.4 mg/dL (8.4-10.2); Carbon Dioxide 27 mmol/L (22-32); Chloride 102 mmol/L (98-107); Estimated Glomerular Filt Rate > 60 mL/min (>60); Glucose 107 mg/dL (80-110); HEMOLYSIS < 15 (0-50); Potassium 4.3 mmol/L (3.4-5.1); Sodium 137 mmol/L (137-145); Total Protein 6.9 g/dL (6.3-8.2)
== END ==
LOC: LAB 08:22
PROVIDERS: PCP Nurse Practitioner; Referring Provider Nurse Practitioner; Visit Provider Nurse Practitioner
DX: E11.9 Type 2 diabetes mellitus without complications (principal); Z79.4 Long term (current) use of insulin
CPT/HCPCS: 36415; 80053; 83036

== ENCOUNTER → 2023-11-20 09:53 | Outpatient (CLI) | payer MEDICARE, OTHER, SELFPAY ==
--- NOTE | 2023-11-20 09:54 | DI.MG.S_ITS ---
BILATERAL DIGITAL SCREENING MAMMOGRAM 3D/2D WITH CAD: 11/20/2023 CLINICAL: Routine screening. Family history of breast cancer. Comparison is made to exams dated: 10/27/2022 mammogram, 09/30/2021 mammogram, and 09/17/2020 mammogram - [facility]. Both breasts are almost entirely fatty (category a/<25% glandular tissue). Current study was also evaluated with a Computer Aided Detection (CAD) system. No significant masses, calcifications, or other findings are seen in either breast. There has been no significant interval change. IMPRESSION: NEGATIVE There is no mammographic evidence of malignancy. A 1 year screening mammogram is recommended. Based on the Tyrer Cuzick model (a risk assessment model) the patient's lifetime risk is 11.2% and her 10 year risk is 6.2%. According to the ACR, ACS, and NCCN guidelines, an annual breast MRI exam along with mammogram is recommended if the patient's lifetime risk is 20% or greater. This exam was interpreted at Station ID: [id number]. NOTE: For mammograms, a report in lay terms will be sent to the patient. Approximately 15% of breast malignancies will not be visualized mammographically. In the management of a palpable breast mass, a negative mammogram must not discourage biopsy of a clinically suspicious lesion. Electronically Signed By: Lance lawler/annelise:11/20/2023 23:28:22 letter sent: Normal Exam ACR BI-RADS Category 1: Negative 3341F
== END ==
PROVIDERS: PCP Nurse Practitioner; Referring Provider Nurse Practitioner; Visit Provider Nurse Practitioner
DX: Z12.31 Encounter for screening mammogram for malignant neoplasm of breast (principal); Z80.3 Family history of malignant neoplasm of breast
CPT/HCPCS: 77063; 77067

== ENCOUNTER → 2024-03-13 12:14 | Outpatient (CLI) | payer MEDICARE, OTHER, SELFPAY ==
--- NOTE | 2024-03-13 12:15 | DI.RAD.S_ITS ---
PROCEDURE: XR DEXA AXIAL SKELETON INDICATIONS: Ostoporosis COMPARISON: [facility], CR, XR DEXA AXIAL SKELETON, 04/25/2022, 12:42. FINDINGS: Lumbar Spine: Bone mineral density 1.21 g/cm2, T score 1, previously 2. Left Hip: Bone mineral density 0.85 g/cm2, T score -0.8, previously -1.9. Left Femoral Neck: Bone mineral density is 0.79 g/cm2, T score -0.5, previously -1.6. Right Hip: Bone mineral density 1.01 g/cm2, T score 0.6, previously 0.3. Right Femoral Neck: Bone mineral density 0.90 g/cm2, T score 0.5, previously 0.2. Fracture Risk Calculation (when applicable): 10-year fracture risk of a major osteoporotic fracture 6.8% and of a hip fracture 0.4%. (T score greater or equal to -1.0 to: NORMAL) (T score from -1.1 to -2.4: OSTEOPENIA) (T score less than or equal to -2.5: OSTEOPOROSIS) IMPRESSION: T-scores have improved in the left hip and femoral neck, now at the lower limit of normal. Other T-scores are within normal limits. Follow-up guidelines as follows: Osteoporosis: Consider a repeat DEXA and Vertebral Fracture Assessment (VFA) exam in 2 years or sooner if medically necessary, to reassess this patient's status. Osteopenia: Consider a repeat DEXA in 2-3 years to reassess this patient's status, or if there is a new clinical indication. Normal: Consider a repeat DEXA in 5 years or sooner, or if there is a new clinical indication. Dictated by: Dayron Negro M.D. on 03/13/2024 at 16:22 Approved by: Dayron Negro M.D. on 03/13/2024 at 16:25
== END ==
PROVIDERS: PCP Nurse Practitioner; Referring Provider Nurse Practitioner; Visit Provider Nurse Practitioner
DX: M81.8 Other osteoporosis without current pathological fracture (principal)
CPT/HCPCS: 77080

== ENCOUNTER → 2024-03-17 08:13 | Outpatient (CLI) | payer MEDICARE, OTHER, SELFPAY ==
[2024-03-17 10:11] LABS: Alanine Aminotransferase 15 IU/L (<35); Albumin Globulin Ratio 1.6 (1.0-2.8); Alkaline Phosphatase 74 U/L (38-126); Aspartate Aminotransferase 20 IU/L (14-36); BUN Creatinine Ratio 25.8 (6-22); Bilirubin Total 0.7 mg/dL (0.2-1.3); Blood Urea Nitrogen 16 mg/dL (7-17); Calcium 8.7 mg/dL (8.4-10.2); Carbon Dioxide 30 mmol/L (22-32); Chloride 103 mmol/L (98-107); Cholesterol 164 mg/dL (140-199); Estimated Glomerular Filt Rate > 60 mL/min (>60); Globulin 2.5 g/dL (1.7-4.1); Glucose 109 mg/dL (80-110); HDL Cholesterol 64 mg/dL (40-60); HEMOLYSIS < 15 (0-50); LDL Cholesterol Calculated 69 mg/dL (<100); Potassium 4.3 mmol/L (3.4-5.1); Sodium 139 mmol/L (137-145); Total Protein 6.5 g/dL (6.3-8.2); Triglycerides 157 mg/dL (35-150)
[2024-03-17 10:18] LABS: Hemoglobin A1C% w Est Avg Glu 6.1 % (4.0-6.0)
== END ==
PROVIDERS: PCP Nurse Practitioner; Referring Provider Nurse Practitioner; Visit Provider Nurse Practitioner
DX: E11.69 Type 2 diabetes mellitus with other specified complication (principal); E78.5 Hyperlipidemia, unspecified; E11.9 Type 2 diabetes mellitus without complications; Z79.4 Long term (current) use of insulin
CPT/HCPCS: 36415; 80053; 80061; 83036